=== PATIENT | female | born 1990 | race Caucasian/White ===

== ENCOUNTER 2018-05-01 00:50 | Inpatient (IN) ==
[2018-05-02] MEDS ORDERED: Gentamicin Consult Pharmacy 1 EACH OTHER SCH (00:01)
[2018-05-02] MEDS ORDERED: Sodium Chlor 0.9% Inj 500 ML IV.SIG SCH (00:01)
[2018-05-02] MEDS ORDERED: Metoprolol Tartrate 25 MG Tablet PO SCH (00:01)
[2018-05-02] MEDS ORDERED: Chlorhexidine Gluconate 2% 1 Pack (2 Cloths) TOPICAL SCH (00:01)
[2018-05-02] MEDS ORDERED: HYDROmorphone PF Inj 2 MG/ML Vial ONE (00:21)
[2018-05-02] MEDS ORDERED: Pantoprazole Inj 40 MG Vial ONE (01:17)
[2018-05-02] MEDS: Pantoprazole Inj 40 MG Vial IV.PUSH SCH (01:25)
[2018-05-02] MEDS: HYDROmorphone PF Inj 2 MG/ML Vial IV.PUSH PRN ×5 (04:17→23:34)
[2018-05-02] MEDS: Gentamicin Inj 80 MG in Sodium Chlor 0.9% Inj 100 ML IV.SIG SCH ×3 (04:19→20:40)
[2018-05-02] MEDS: Senna/Docusate Sodium 8.6/50 MG Tablet PO SCH ×2 (08:11→20:40)
[2018-05-02 08:15] LABS: Baso % (Auto) 0.1 % (0.0-2.0); Eos % (Auto) 0.1 % (0.0-4.0); Hematocrit 30.7 % (35.0-46.0); Hemoglobin 10.4 gm/dL (11.6-15.3); Lymph # (Auto) 1.5 th/mm3 (1.0-4.8); Lymph % (Auto) 15.4 % (9.0-44.0); Mean Corpuscular HGB Conc 33.7 % (32.0-36.0); Mean Corpuscular Hemoglobin 28.9 pg (27.0-34.0); Mean Corpuscular Volume 85.7 fL (80.0-100.0); Mean Platelet Volume 8.4 fL (7.0-11.0); Mono # (Auto) 0.9 th/mm3 (0.0-0.9); Mono % (Auto) 9.4 % (0.0-8.0); Neut # (Auto) 7.5 th/mm3 (1.8-7.7); Platelet Count 176 th/mm3 (150-450); Red Blood Count 3.59 mil/mm3 (4.00-5.30); Red Cell Distribution Width 12.9 % (11.6-17.2); White Blood Count 9.9 th/mm3 (4.0-11.0)
[2018-05-02] MEDS: Sod Chloride 0.9% Inj 1,000 ML IV.SIG SCH (08:27)
[2018-05-02 08:44] LABS: Albumin 2.8 g/dL (3.4-5.0); Anion Gap 9 meq/L (5-15); Aspartate Aminotransferase 25 U/L (15-37); Blood Urea Nitrogen 6 mg/dL (7-18); Calcium 7.7 mg/dL (8.5-10.1); Carbon Dioxide 26.3 meq/L (21.0-32.0); Chloride 105 meq/L (98-107); Glomerular Filtration Rate Greater Than 89 mL/min (>89); Glucose,Random 86 mg/dL (74-106); Potassium 3.5 meq/L (3.5-5.1); Sodium 140 meq/L (136-145)
[2018-05-02 08:48] LABS: Alanine Aminotransferase 19 U/L (10-53); Alkaline Phosphatase 85 U/L (45-117); Total Protein 6.1 g/dL (6.4-8.2)
--- NOTE | 2018-05-02 10:11 | P.PNOP ---
Subjective Interval history: Patient resting comfortably this morning. Reports left arm pain otherwise doing well Physical Exam Vital signs: Vital Signs 05/02/18 04:00 05/02/18 06:43 05/02/18 08:00 Temperature 97.8 F 98.5 F Pulse Rate 92 H 105 H Respiratory Rate 18 18 18 Blood Pressure 109/58 L 107/63 Pulse Oximetry 94 L Intake & Output 05/01/18 05/02/18 05/02/18 18:59 06:59 18:59 Intake Total 580 / 580 Output Total 2250 / 2250 Balance -1670 / -1670 Weight 100 kg 100 kg Intake: IV 100 / 100 Ancef Inj 1,000 MG In NS Inj 100 / 100 100 ML @ 200 mls/hr IV.SIG Q8H ALLEY Rx#:[id number] Oral 480 / 480 Output: Urine 2250 / 2250 Other: # Bowel Movements 0 Narrative: Awake, alert, no acute distress Left upper extremity: Splint and sling in place. VAC with good seal. Patient is able to move fingers and demonstrates she is able to perform a thumbs up. Sensation appears grossly intact distally. Radial pulses palpable. Assessment and Plan - Assessment and Plan 27-year-old female, postop day 1 status post irrigation and debridement of left elbow/arm and application of wound VAC 1. Nonweightbearing left upper extremity in splint. Patient will require secondary surgery by my partner, Dr. King for repeat irrigation and debridement and fixation of her distal humerus fracture. 2. Wound VAC to remain in place until second surgery 3. Continue antibiotics for open fracture
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
[2018-05-02] MEDS ORDERED: Enoxaparin Inj 40 MG/0.4 ML Syringe SQ SCH (17:45)
[2018-05-02] MEDS ORDERED: Pharmacy Ordered Lab Info OTHER ONE ×2 (19:45→21:00)
[2018-05-03] MEDS: Pantoprazole Inj 40 MG Vial IV.PUSH SCH (01:31)
[2018-05-03] MEDS: Sod Chloride 0.9% Inj 1,000 ML IV.SIG SCH ×3 (02:19→06:42)
[2018-05-03] MEDS: Gentamicin Inj 80 MG in Sodium Chlor 0.9% Inj 100 ML IV.SIG SCH ×3 (04:55→20:36)
[2018-05-03] MEDS: HYDROmorphone PF Inj 2 MG/ML Vial IV.PUSH PRN ×2 (04:55→22:14)
--- NOTE | 2018-05-03 07:08 | P.PNOP ---
Subjective Interval history: Resting comfortably in bed with no acute distress. Long-arm splint in place over left upper extremity. She has intact distal pulses and sensation. Physical Exam Vital signs: Vital Signs 05/02/18 08:00 05/02/18 12:00 05/02/18 15:11 Temperature 98.5 F 99.0 F Pulse Rate 105 H 117 H Respiratory Rate 18 Blood Pressure 107/63 110/53 L Pulse Oximetry 98 96 05/02/18 16:00 05/02/18 19:11 05/02/18 20:13 Temperature 98.7 F 98.3 F Pulse Rate 111 H 104 H Respiratory Rate 18 18 18 Blood Pressure 124/70 112/70 Pulse Oximetry 97 96 05/03/18 00:01 05/03/18 04:36 05/03/18 05:02 Temperature 98.5 F 97.8 F Pulse Rate 125 H 101 H Respiratory Rate 19 18 18 Blood Pressure 141/83 H 110/62 Pulse Oximetry 96 95 Intake & Output 05/02/18 05/03/18 05/03/18 18:59 06:59 18:59 Intake Total 1682 / 1682 644 / 644 Output Total 200 / 200 Balance 1482 / 1482 644 / 644 Weight 100 kg Intake: IV 1202 / 1202 404 / 404 Gentamicin Inj 80 MG In NS Inj 102 / 102 204 / 204 100 ML @ 204 mls/hr IV.SIG Q8H ALLEY Rx#:[id number] NS Inj 1,000 ML @ 100 mls/hr IV 1000 / 1000 .SIG .Q10H ALLEY Rx#:[id number] Ancef Inj 1,000 MG In NS Inj 100 / 100 200 / 200 100 ML @ 200 mls/hr IV.SIG Q8H ALLEY Rx#:[id number] Oral 480 / 480 240 / 240 Output: Urine 200 / 200 Other: Date of Last Bowel Movement 05/01/18 04/30/18 # Bowel Movements 0 Weight On Admission 100 kg - Constitutional no acute distress - Routine Abdominal Exam Present: soft. Absent: distended - Routine Extremities Exam Comments: Bilateral lower extremities: Full range of motion neurovascularly intact Right upper extremity: Full range of motion and neurovascularly intact Left upper extremity: Long-arm splint in place. She has intact sensation all her fingers with good capillary refills. She is able to extend her fingers and make a fist. Assessment and Plan - Assessment and Plan 27-year-old female, postop day 2 status post irrigation and debridement of left elbow/arm and application of wound VAC Nonweightbearing left upper extremity in splint. Wound VAC to remain in place Continue antibiotics for open fracture N.p.o. Sign consents Surgery this morning for irrigation debridement and wound VAC application
[2018-05-03] MEDS: Senna/Docusate Sodium 8.6/50 MG Tablet PO SCH (08:02)
[2018-05-03] MEDS: Enoxaparin Inj 40 MG/0.4 ML Syringe SQ SCH (11:38)
[2018-05-03] MEDS ORDERED: Naloxone Inj 0.4 MG/ML Vial IV.PUSH PRN (11:57)
[2018-05-03] MEDS ORDERED: Post-op Orders (for Pharmacy) OTHER STA (11:57)
[2018-05-03] MEDS ORDERED: Sodium Chlor 0.9% Inj 250 ML IV.SIG SCH (12:00)
[2018-05-03] MEDS ORDERED: Glycopyrrolate Inj 1 MG/5 ML Syringe IV.PUSH ONE (12:00)
[2018-05-03] MEDS ORDERED: Lidocaine PF 1% Inj 5 ML Syringe INFILTRATN ONE (12:00)
[2018-05-03] MEDS ORDERED: Neostigmine Inj 5 MG/5 ML Syringe IV.PUSH ONE (12:00)
[2018-05-03] MEDS ORDERED: Gentamicin/NS 80 mg Premix 100 ML IV.SIG SCH (12:00)
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
[2018-05-03] MEDS ORDERED: *Meperidine Inj 25 MG/ML Vial PERIprocedural Use ONLY ONE (12:33)
[2018-05-03] MEDS ORDERED: fentaNYL Citrate Inj 100 MCG/2 ML Ampul ONE (12:39)
[2018-05-03] MEDS ORDERED: *morphine SULFATE 4 MG/ML PERIprocedure ONLY ONE ×2 (12:45→12:50)
[2018-05-03] MEDS ORDERED: HYDROmorphone PF Inj 2 MG/ML Vial ONE ×3 (12:58→13:29)
[2018-05-03] MEDS ORDERED: Pharmacy Ordered Lab Info OTHER ONE ×2 (13:00→21:00)
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
[2018-05-03] MEDS ORDERED: ceFAZolin Inj 2,000 MG in Sodium Chlor 0.9% Inj 80 ML IV.SIG SCH (16:00)
[2018-05-03] MEDS: ceFAZolin 2 GM Premix Inj 2 GM/100 ML BAG IV.SIG SCH (22:35)
[2018-05-04] MEDS: Pantoprazole Inj 40 MG Vial IV.PUSH SCH (02:00)
[2018-05-04] MEDS: ceFAZolin 2 GM Premix Inj 2 GM/100 ML BAG IV.SIG SCH ×3 (03:35→18:25)
[2018-05-04] MEDS: Gentamicin Inj 80 MG in Sodium Chlor 0.9% Inj 100 ML IV.SIG SCH ×3 (03:36→21:05)
[2018-05-04] MEDS: HYDROmorphone PF Inj 2 MG/ML Vial IV.PUSH PRN ×4 (05:05→21:07)
[2018-05-04 06:23] LABS: Baso % (Auto) 0.4 % (0.0-2.0); Eos % (Auto) 0.4 % (0.0-4.0); Hematocrit 27.3 % (35.0-46.0); Hemoglobin 9.3 gm/dL (11.6-15.3); Lymph # (Auto) 2.4 th/mm3 (1.0-4.8); Lymph % (Auto) 24.4 % (9.0-44.0); Mean Corpuscular Hemoglobin 28.7 pg (27.0-34.0); Mean Corpuscular Volume 84.5 fL (80.0-100.0); Mean Platelet Volume 8.1 fL (7.0-11.0); Mono # (Auto) 0.4 th/mm3 (0.0-0.9); Mono % (Auto) 4.2 % (0.0-8.0); Neut # (Auto) 6.8 th/mm3 (1.8-7.7); Neut % (Auto) 70.6 % (16.0-70.0); Platelet Count 201 th/mm3 (150-450); Red Blood Count 3.23 mil/mm3 (4.00-5.30); Red Cell Distribution Width 12.7 % (11.6-17.2); White Blood Count 9.7 th/mm3 (4.0-11.0)
[2018-05-04 06:42] LABS: Anion Gap 10 meq/L (5-15); Blood Urea Nitrogen 6 mg/dL (7-18); Calcium 8.1 mg/dL (8.5-10.1); Carbon Dioxide 27.2 meq/L (21.0-32.0); Chloride 101 meq/L (98-107); Glomerular Filtration Rate Greater Than 89 mL/min (>89); Glucose,Random 89 mg/dL (74-106); Potassium 3.6 meq/L (3.5-5.1); Sodium 138 meq/L (136-145)
--- NOTE | 2018-05-04 07:30 | P.DCO ---
- Diagnosis (1) Humerus fracture - Physical Therapy Order: Evaluate and treat, Improve ambulation, Strength and gait training - Home Health Nursing Order: Medical education, Signs/symptoms of disease process, Medication education-adverse effect, Nursing assessment with vital signs - Certification I have seen patient Germaine Acosta on 05/04/18. My clinical findings support the need for the requested home health care services because: Limited mobility due to disease progression, Deconditioned with increased weakness, Limited ability to care for self, High risk of falls, Infection with risk of complications I certify that my clinical findings support that this patient is homebound because: Unsteady gait/balance, Unsafe to leave home unassisted, Unable to use public transportation (1) Humerus fracture Qualifiers: Encounter type: initial encounter Fracture type: open Fracture morphology: unspecified fracture morphology Laterality: left
[2018-05-04 07:54] LABS: Lymphocytes 19 % (9-44); Monocytes 3 % (0-8)
[2018-05-04 07:55] LABS: Platelet Estimate Normal (Normal); Platelet Morphology Normal (Normal)
[2018-05-04] MEDS: Senna/Docusate Sodium 8.6/50 MG Tablet PO SCH ×3 (08:04→21:05)
[2018-05-04] MEDS: Enoxaparin Inj 40 MG/0.4 ML Syringe SQ SCH (08:44)
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
--- NOTE | 2018-05-04 15:56 | P.PNOP ---
Subjective Interval history: Resting comfortably with no new complaint Physical Exam Vital signs: Vital Signs 05/03/18 16:00 05/03/18 20:00 05/03/18 22:00 Temperature 97.2 F L 98.3 F Pulse Rate 104 H 96 H Respiratory Rate 16 Blood Pressure 111/68 101/63 Pulse Oximetry 96 94 L 96 05/04/18 00:00 05/04/18 03:37 05/04/18 08:00 Temperature 97.7 F 98.1 F 97.8 F Pulse Rate 69 99 H 87 Respiratory Rate 20 18 17 Blood Pressure 111/57 L 126/61 111/55 L Pulse Oximetry 94 L 96 96 05/04/18 12:00 05/04/18 15:21 Temperature 97.9 F Pulse Rate 91 H Respiratory Rate 18 16 Blood Pressure 107/55 L Pulse Oximetry 97 Intake & Output 05/03/18 05/04/18 05/04/18 18:59 06:59 18:59 Intake Total 1440 / 1440 784 / 784 Output Total 430 / 430 650 / 650 Balance 1010 / 1010 134 / 134 Intake: IV 100 / 100 304 / 304 Gentamicin Inj 80 MG In NS Inj 204 / 204 100 ML @ 204 mls/hr IV.SIG Q8H ALLEY Rx#:[id number] Ancef 2 GM Premix Inj 2 gm In 100 / 100 100 ml @ 200 mls/hr IV.SIG Q8H ALLEY Rx#:[id number] Ancef Inj 1,000 MG In NS Inj 100 / 100 100 ML @ 100 mls/hr IV.SIG ONCE ONE Rx#:[id number] Oral 840 / 840 480 / 480 Anesthesia Amount 500 / 500 Output: Urine 400 / 400 650 / 650 Estimated Blood Loss 30 / 30 Other: # Voids 4 Date of Last Bowel Movement 05/01/18 05/01/18 # Bowel Movements 0 - Routine Extremities Exam Comments: Left upper extremity: Sling disheveled. Sling reapplied and splint is in good repair with wound VAC intact. Distally she has intact sensation with full extension flexion of all fingers Results - Labs CBC & Chem 7: 05/04/18 05:47 05/04/18 05:47 Laboratory Results - last 24 hr 05/03/18 05/04/18 05/04/18 22:45 05:47 05:47 WBC 9.7 RBC 3.23 L Hgb 9.3 L Hct 27.3 L MCV 84.5 MCH 28.7 MCHC 34.0 RDW 12.7 Plt Count 201 MPV 8.1 Prelim Diff (Auto) Slide review pending Neut % (Auto) 70.6 H Lymph % (Auto) 24.4 [place] % (Auto) 4.2 Eos % (Auto) 0.4 Baso % (Auto) 0.4 Neut # (Auto) 6.8 Lymph # (Auto) 2.4 [place] # (Auto) 0.4 Eos # (Auto) 0.0 Baso # (Auto) 0.0 WBC Differential Manual diff final Seg Neuts % (Manual) 78 H Lymphocytes % (Manual) 19 Monocytes % (Manual) 3 Abs Neuts (Manual) 7.6 Differential Comment . Platelet Estimate Normal Platelet Morphology Normal Sodium 138 Potassium 3.6 Chloride 101 Carbon Dioxide 27.2 Anion Gap 10 BUN 6 L Creatinine 0.45 L Estimated GFR Greater than 89 Random Glucose 89 Calcium 8.1 L Gentamicin Peak 2.3 L Assessment and Plan - Assessment and Plan Irrigation debridement with wound closure and VAC application POD 1 Nonweightbearing left upper extremity in splint. Wound VAC to remain in place Continue antibiotics for open fracture We will take down wound VAC on or Thursday to evaluate skin condition. Surgical intervention will be performed when improvement with traumatic wound assessment is performed.
[2018-05-05] MEDS: Pantoprazole Inj 40 MG Vial IV.PUSH SCH (01:53)
[2018-05-05] MEDS: Gentamicin Inj 80 MG in Sodium Chlor 0.9% Inj 100 ML IV.SIG SCH ×2 (03:59→13:15)
[2018-05-05] MEDS: ceFAZolin 2 GM Premix Inj 2 GM/100 ML BAG IV.SIG SCH ×2 (04:00→12:44)
[2018-05-05] MEDS: HYDROmorphone PF Inj 2 MG/ML Vial IV.PUSH PRN ×3 (04:08→20:47)
[2018-05-05] MEDS ORDERED: Bisacodyl 10 MG Supp RECTAL ONE (08:15)
[2018-05-05] MEDS: Senna/Docusate Sodium 8.6/50 MG Tablet PO SCH ×2 (09:42→20:46)
[2018-05-05] MEDS: Enoxaparin Inj 40 MG/0.4 ML Syringe SQ SCH (09:43)
--- NOTE | 2018-05-05 10:19 | P.PNOP ---
Subjective Interval history: Patient comfortable. Pain controlled. Physical Exam Vital signs: Vital Signs 05/04/18 12:00 05/04/18 15:21 05/04/18 16:00 Temperature 97.9 F 98 F Pulse Rate 91 H 95 H Respiratory Rate 18 16 16 Blood Pressure 107/55 L 105/63 Pulse Oximetry 97 95 05/04/18 19:15 05/05/18 00:00 05/05/18 08:56 Temperature 98.7 F 99 F 98.6 F Pulse Rate 20 L 96 H 87 Respiratory Rate 20 18 16 Blood Pressure 117/66 122/70 122/65 Pulse Oximetry 97 95 95 Intake & Output 05/04/18 05/05/18 05/05/18 18:59 06:59 18:59 Intake Total 1702 / 1702 102 / 102 Output Total 6 / 6 0 / 0 Balance 1696 / 1696 102 / 102 Intake: IV 502 / 502 102 / 102 Ofirmev Inj 1,000 mg In 100 ml 200 / 200 @ 400 mls/hr IV.SIG Q6H ALLEY Rx# :[id number] Gentamicin Inj 80 MG In NS Inj 102 / 102 102 / 102 100 ML @ 204 mls/hr IV.SIG Q8H ALLEY Rx#:[id number] Ancef 2 GM Premix Inj 2 gm In 200 / 200 100 ml @ 200 mls/hr IV.SIG Q8H ALLEY Rx#:[id number] Oral 1200 / 1200 Output: Urine 6 / 6 Wound Drainage 0 / 0 0 / 0 Left Elbow 0 / 0 0 / 0 Other: Date of Last Bowel Movement 05/01/18 # Bowel Movements 0 Narrative: Right Elbow dressing and splint intact wound vac in place sling in place distally motor, neuro, sensory intact Results - Labs CBC & Chem 7: 05/04/18 05:47 05/04/18 05:47 Assessment and Plan - Assessment and Plan Irrigation debridement with wound closure and VAC application POD 2 Nonweightbearing left upper extremity in splint. Wound VAC to remain in place Continue antibiotics for open fracture We will take down wound VAC on or Thursday to evaluate skin condition. Surgical intervention will be performed when improvement with traumatic wound assessment is performed.
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
[2018-05-05] MEDS ORDERED: Pharmacy Ordered Lab Info OTHER ONE ×2 (11:30→13:00)
[2018-05-05] MEDS: ceFAZolin 2 GM Premix Inj 2 GM/50 ML PIGGYBACK IV.SIG SCH (18:26)
[2018-05-05] MEDS ORDERED: Melatonin 5 MG Tablet PO PRN (21:00)
[2018-05-05] MEDS: Gentamicin Inj 100 MG in Sodium Chlor 0.9% Inj 100 ML IV.SIG SCH (23:11)
[2018-05-06] MEDS: Pantoprazole Inj 40 MG Vial IV.PUSH SCH (02:04)
[2018-05-06] MEDS: ceFAZolin 2 GM Premix Inj 2 GM/50 ML PIGGYBACK IV.SIG SCH ×3 (02:04→18:15)
[2018-05-06] MEDS: HYDROmorphone PF Inj 2 MG/ML Vial IV.PUSH PRN ×5 (02:04→20:19)
[2018-05-06] MEDS: Gentamicin Inj 100 MG in Sodium Chlor 0.9% Inj 100 ML IV.SIG SCH ×3 (04:47→20:33)
--- NOTE | 2018-05-06 06:38 | P.PNOP ---
Subjective Interval history: POd 2 s/p I&D with wound closure and incisional vac placement left distal humerus fx doing well. pain controlled. no new complaints Physical Exam Vital signs: Vital Signs 05/05/18 08:56 05/05/18 12:00 05/05/18 16:00 Temperature 98.6 F 99.5 F 98.2 F Pulse Rate 87 104 H 91 H Respiratory Rate 16 16 16 Blood Pressure 122/65 107/63 114/72 Pulse Oximetry 95 98 98 05/05/18 20:00 05/06/18 00:00 Temperature 98.4 F 98.2 F Pulse Rate 89 84 Respiratory Rate 18 16 Blood Pressure 116/65 116/63 Pulse Oximetry 98 98 Intake & Output 05/05/18 05/05/18 05/06/18 06:59 18:59 06:59 Intake Total 304 / 304 50 / 50 102.5 / 102.5 Output Total 0 / 0 Balance 304 / 304 50 / 50 102.5 / 102.5 Intake: IV 304 / 304 50 / 50 102.5 / 102.5 Gentamicin Inj 100 MG In NS Inj 204 / 204 102.5 / 102.5 100 ML @ 204 mls/hr IV.SIG Q8H ALLEY Rx#:[id number] Ancef 2 GM Premix Inj 2 gm In 100 / 100 100 ml @ 200 mls/hr IV.SIG Q8H ALLEY Rx#:[id number] Ancef 2 GM Premix Inj 2 gm In 50 / 50 50 ml @ 100 mls/hr IV.SIG Q8H ALLEY Rx#:[id number] Output: Wound Drainage 0 / 0 Left Elbow 0 / 0 Other: # Voids 5 Date of Last Bowel Movement 05/05/18 # Bowel Movements 1 Narrative: LUE: +splint. intact. +vac. good seal. nvi to median/ulnar nerve. Results - Labs CBC & Chem 7: 05/04/18 05:47 05/04/18 05:47 Laboratory Results - last 24 hr 05/05/18 17:30 Random Gentamicin 1.6 Assessment and Plan - Assessment and Plan Irrigation debridement with wound closure and VAC application POD 2 Nonweightbearing left upper extremity in splint. Wound VAC to remain in place Continue antibiotics for open fracture We will take down wound VAC on Thursday to evaluate skin condition. Surgical intervention will be performed when improvement with traumatic wound assessment is performed. NPO after MN plan for surgery tomorrow hold sonny
[2018-05-06] MEDS: Sod Chloride 0.9% Inj 1,000 ML IV.SIG SCH ×3 (07:48→16:27)
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
[2018-05-06] MEDS: Senna/Docusate Sodium 8.6/50 MG Tablet PO SCH (15:56)
[2018-05-06] MEDS ORDERED: Pharmacy Ordered Lab Info OTHER ONE ×2 (19:45→21:00)
[2018-05-07] MEDS: HYDROmorphone PF Inj 2 MG/ML Vial IV.PUSH PRN ×5 (01:52→21:30)
[2018-05-07] MEDS: Pantoprazole Inj 40 MG Vial IV.PUSH SCH (03:51)
[2018-05-07] MEDS: ceFAZolin 2 GM Premix Inj 2 GM/50 ML PIGGYBACK IV.SIG SCH ×2 (03:51→19:17)
[2018-05-07] MEDS: Gentamicin Inj 100 MG in Sodium Chlor 0.9% Inj 100 ML IV.SIG SCH (05:11)
--- NOTE | 2018-05-07 07:16 | P.PNOP ---
Subjective Interval history: Resting comfortably with no new complaints Physical Exam Vital signs: Vital Signs 05/06/18 08:00 05/06/18 11:40 05/06/18 12:00 Temperature 97.3 F L 98.2 F Pulse Rate 112 H 100 H Respiratory Rate 18 18 Blood Pressure 116/72 112/60 Pulse Oximetry 97 99 98 05/06/18 16:00 05/06/18 20:00 05/07/18 00:00 Temperature 98.3 F 97.4 F L 98.3 F Pulse Rate 100 H 105 H 101 H Respiratory Rate 18 18 18 Blood Pressure 115/61 138/65 113/60 Pulse Oximetry 100 99 99 05/07/18 04:00 Temperature 98.0 F Pulse Rate 97 H Respiratory Rate 18 Blood Pressure 117/59 L Pulse Oximetry 98 Intake & Output 05/06/18 05/07/18 05/07/18 18:59 06:59 18:59 Intake Total 1106 / 1106 102.5 / 102.5 Output Total 0 / 0 Balance 1106 / 1106 102.5 / 102.5 Weight 100 kg Intake: IV 706 / 706 102.5 / 102.5 Gentamicin Inj 100 MG In NS Inj 204 / 204 102.5 / 102.5 100 ML @ 204 mls/hr IV.SIG Q8H ALLEY Rx#:[id number] Ancef 2 GM Premix Inj 2 gm In 100 / 100 50 ml @ 100 mls/hr IV.SIG Q8H ALLEY Rx#:[id number] Oral 400 / 400 Output: Wound Drainage 0 / 0 Left Elbow 0 / 0 Other: # Voids 8 Date of Last Bowel Movement 05/05/18 # Bowel Movements 1 Narrative: GENERAL: This is a 27-year-old female lying in bed. No distress noted. SKIN: Warm and dry. HEAD: Atraumatic. Normocephalic. EYES: LEFT eye ecchymosis. ENT: No nasal bleeding or discharge. Mucous membranes pink and moist. NECK: Trachea midline. No JVD. CARDIOVASCULAR: Regular rate and rhythm. RESPIRATORY: No accessory muscle use. Lungs are clear to auscultation. Breath sounds equal bilaterally. No distress or dyspnea. GASTROINTESTINAL: BS + x 4 quads. Abdomen soft, non-tender, nondistended. MUSCULOSKELETAL: Extremities without cyanosis, or edema. Left upper extremity with splint in place and wrapped in Varun bandage. Wound VAC noted with good seal. + peripheral pulses x 4 extremities. Warm with good capillary refill and sensation. Active extension flexion of all fingers. NEUROLOGICAL: Awake and alert. Normal speech and pattern. Results - Labs CBC & Chem 7: 05/04/18 05:47 18 05:47 Assessment and Plan - Assessment and Plan Irrigation debridement with wound closure and VAC application left elbow POD 3 Nonweightbearing left upper extremity in splint. Wound VAC to remain in place Continue antibiotics for open fracture NPO Surgery today for irrigation debridement and possible ORIF hold lovenox
[2018-05-07] MEDS ORDERED: Chlorhexidine Gluconate 2% 1 Pack (2 Cloths) TOPICAL SCH (09:15)
[2018-05-07] MEDS ORDERED: Metoprolol Tartrate 25 MG Tablet PO SCH (09:15)
[2018-05-07] MEDS ORDERED: Sodium Chlor 0.9% Inj 500 ML IV.SIG SCH (10:00)
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
[2018-05-07] MEDS ORDERED: Promethazine 25 MG Supp RECTAL PRN (11:42)
--- NOTE | 2018-05-07 11:49 | P.OP ---
Date of procedure: 05/07/18 Procedure: Irrigation and debridement of open distal humerus fracture Open left distal humerus fracture Implants: Synthes distal humerus plate, Arthrex bioabsorbable pin Anesthesia: GETA Surgeon: Tony Feliz MD Can Piler: TARI Rodriguez PA-C The surgical procedure was assisted by my physician farm assistant. My P.A. presence was necessary throughout this case for the manipulation and positioning of the surgical extremity. My P.A. was assisting me throughout the duration of this procedure. The skill set of a physician farm assistant was medically necessary to complete this procedure. During the surgical case the ophthalmic surgical assistant was working at the back table and the physician farm assistant was directly assisting me. Operation and Findings: Patient was seen and evaluated preoperatively. After detailed discussion of risk and benefits of procedure patient wishes to proceed with surgery. Risks of surgery include bleeding, infection, nonunion, malunion, painful hardware, loss of motion of shoulder and elbow, weakness and numbness of arm, ulnar nerve injury as well as medical competitions including blood clots stroke and . Patient was brought to operating room and placed on the OR table. GETA was administered by anesthesiologist. Patient was positioned in lateral decubitus position. Extremities were well-padded. Axillary roll was placed. Operative arm and shoulder were prepped with alcohol followed by Hibiclens and draped usual sterile fashion. Timeout procedure was performed. IV antibiotics were given prior to incision. A standard posterior approach was utilized. Subcutaneous tissues was dissected with Bovie. The lateral border of the triceps was elevated off of the distal humerus. Fracture site was visualized. Next, the ulnar nerve was identified and protected throughout the procedure. The nerve was intact. The fracture was identified along the medial distal humerus. At this point attention was turned towards irrigation and debridement of open fracture. An excisional debridement was performed. Soft tissue was removed from the fracture site. Fracture site was cleaned with curettes. After thorough debridement of the fracture site, the wound was thoroughly irrigated with 3 L of sterile saline. Next attention was turned towards open reduction internal fixation of the fracture. At this point the fracture was reduced using fracture tenaculums. Multiplanar fluoroscopy confirmed excellent of fracture. Synthes distal humerus plate was selected. A Synthes lateral plate was placed along the posterior lateral humerus. Plate was provisionally held to bone with K wires. 3.5 cortical screws were used to compress plate to bone. Additional 2.7 locking screws were placed distally. K wires were removed. The fracture was very distal. Medially there was not enough distal fragment to capture with the plate. A 2.0 mm Arthrex bio absorbable pin was placed from the medial epicondyle into the distal segment. Final fluoroscopy revealed excellent alignment of fracture with well-placed hardware. Incision was thoroughly irrigated. Fascia was closed with #1 Vicryl, subcutaneous tissues closed with 3 -0 Vicryl, and skin was closed with roegr. Sterile dressings were applied. Needle and sponge counts were correct. Patient was placed into a sling, and then transferred to recovery room in stable condition
[2018-05-07] MEDS ORDERED: Sodium Chlor 0.9% Inj 250 ML IV.SIG SCH (12:00)
[2018-05-07] MEDS ORDERED: Glycopyrrolate Inj 1 MG/5 ML Syringe IV.PUSH ONE (12:00)
[2018-05-07] MEDS ORDERED: Phenylephrine/NS 1000 MCG/10ML Syringe IV.PUSH ONE (12:00)
[2018-05-07] MEDS ORDERED: Neostigmine Inj 5 MG/5 ML Syringe IV.PUSH ONE (12:00)
[2018-05-07] MEDS ORDERED: Lidocaine PF 1% Inj 5 ML Syringe INFILTRATN ONE (12:00)
[2018-05-07] MEDS ORDERED: Post-op Orders (for Pharmacy) OTHER STA (12:00)
[2018-05-07] MEDS ORDERED: *Meperidine Inj 25 MG/ML Vial PERIprocedural Use ONLY ONE (12:18)
[2018-05-07] MEDS ORDERED: fentaNYL Citrate Inj 100 MCG/2 ML Ampul ONE ×2 (12:19→12:20)
[2018-05-07] MEDS ORDERED: Morphine Inj 4 MG/ML Vial ONE (12:20)
[2018-05-07] MEDS ORDERED: *morphine SULFATE 10 MG/ML PERIprocedure ONLY ONE ×2 (12:27→12:43)
--- NOTE | 2018-05-07 12:29 | XR ---
EXAM DATE: 05/07/2018 12:18 PM EDT AGE/SEX: 27 years / Female INDICATIONS: ORIF left elbow in OR. CLINICAL DATA: This is the patient's subsequent encounter. Patient reports that signs and symptoms h ave been present for 2 weeks and indicates a pain score of Nonresponsive. MEDICAL/SURGICAL HISTORY: Non-responsive. Non-responsive. COMPARISON: [facility] [place] HUMERUS [place] (1 VW), 05/01/2018. . FINDINGS: Near-anatomic alignment at previous fracture with plate and screw fixation. No complications identifi ed. CONCLUSION: Near-anatomic alignment status post and screw fixation of distal humerus fracture. Electronically signed by: Faraz Gardner MD 05/07/2018 12:28 PM EDT
--- NOTE | 2018-05-07 12:33 | P.PNOP ---
Subjective Interval history: POD 0 s/p ORIF open left distal humerus fx stable in pacu Physical Exam Vital signs: Vital Signs 05/06/18 16:00 05/06/18 20:00 05/07/18 00:00 Temperature 98.3 F 97.4 F L 98.3 F Pulse Rate 100 H 105 H 101 H Respiratory Rate 18 18 18 Blood Pressure 115/61 138/65 113/60 Pulse Oximetry 100 99 99 05/07/18 00:30 05/07/18 04:00 Temperature 98.0 F Pulse Rate 97 H Respiratory Rate 16 18 Blood Pressure 117/59 L Pulse Oximetry 98 Intake & Output 05/06/18 05/07/18 05/07/18 18:59 06:59 18:59 Intake Total 1106 / 1106 102.5 / 102.5 Output Total 0 / 0 Balance 1106 / 1106 102.5 / 102.5 Weight 100 kg Intake: IV 706 / 706 102.5 / 102.5 Gentamicin Inj 100 MG In NS Inj 204 / 204 102.5 / 102.5 100 ML @ 204 mls/hr IV.SIG Q8H [facility] Rx#:[id number] Ancef 2 GM Premix Inj 2 gm In 100 / 100 50 ml @ 100 mls/hr IV.SIG Q8H [facility] Rx#:[id number] Oral 400 / 400 Output: Wound Drainage 0 / 0 Left Elbow 0 / 0 Other: # Voids 8 Date of Last Bowel Movement 05/05/18 # Bowel Movements 1 Narrative: LUE: +long arm splint. present and in good repair Results - Labs CBC & Chem 7: 05/04/18 05:47 05/04/18 05:47 - Imaging Impressions Elbow X-Ray 05/07/18 00:00 CONCLUSION: Near-anatomic alignment status post and screw fixation of distal humerus fracture. Assessment and Plan - Assessment and Plan POD 0 s/p I&D with ORIF of left distal humerus fx -patient will require 48hr of IV Abx. once completed, can go home -plan for DC home on Thursday -NWB -maintain splint at all times -Rx on chart -f/u with Fernando or ALEJANDRA in 2 weeks
[2018-05-07] MEDS: Senna/Docusate Sodium 8.6/50 MG Tablet PO SCH (23:57)
[2018-05-08] MEDS: HYDROmorphone PF Inj 2 MG/ML Vial IV.PUSH PRN ×3 (01:43→10:54)
[2018-05-08] MEDS: ceFAZolin 2 GM Premix Inj 2 GM/50 ML PIGGYBACK IV.SIG SCH ×4 (02:58→17:41)
[2018-05-08] MEDS: Gentamicin/NS 80 mg Premix 100 ML IV.SIG SCH ×4 (02:59→18:58)
[2018-05-08 07:09] LABS: Baso % (Auto) 0.2 % (0.0-2.0); Eos # (Auto) 0.1 th/mm3 (0.0-0.4); Eos % (Auto) 0.6 % (0.0-4.0); Hematocrit 32.5 % (35.0-46.0); Hemoglobin 10.8 gm/dL (11.6-15.3); Lymph # (Auto) 1.9 th/mm3 (1.0-4.8); Lymph % (Auto) 12.4 % (9.0-44.0); Mean Corpuscular HGB Conc 33.3 % (32.0-36.0); Mean Corpuscular Hemoglobin 28.2 pg (27.0-34.0); Mean Corpuscular Volume 84.6 fL (80.0-100.0); Mean Platelet Volume 7.7 fL (7.0-11.0); Mono # (Auto) 0.9 th/mm3 (0.0-0.9); Mono % (Auto) 6.2 % (0.0-8.0); Neut # (Auto) 12.3 th/mm3 (1.8-7.7); Neut % (Auto) 80.6 % (16.0-70.0); Platelet Count 362 th/mm3 (150-450); Red Blood Count 3.84 mil/mm3 (4.00-5.30); Red Cell Distribution Width 13.7 % (11.6-17.2); White Blood Count 15.3 th/mm3 (4.0-11.0)
[2018-05-08 07:28] LABS: Anion Gap 11 meq/L (5-15); Blood Urea Nitrogen 12 mg/dL (7-18); Calcium 9.2 mg/dL (8.5-10.1); Carbon Dioxide 25.2 meq/L (21.0-32.0); Chloride 99 meq/L (98-107); Glomerular Filtration Rate Greater Than 89 mL/min (>89); Glucose,Random 91 mg/dL (74-106); Potassium 4.1 meq/L (3.5-5.1)
[2018-05-08 07:30] LABS: Sodium 135 meq/L (136-145)
--- NOTE | 2018-05-08 07:47 | P.PNOP ---
Subjective Interval history: POD 1 s/p I&D with ORIF of left distal humerus fx Patient is awake and alert with family member at bedside. She states her pain is moderately, controlled and she wishes to go home. Patient understands she needs to stay until tomorrow. No other complaints Physical Exam Vital signs: Vital Signs 05/07/18 12:15 05/07/18 12:30 05/07/18 12:45 Temperature 98.4 F Pulse Rate 106 H 101 H Respiratory Rate 14 15 15 Blood Pressure 128/89 131/94 H 136/95 H Pulse Oximetry 100 99 05/07/18 13:00 05/07/18 13:10 05/07/18 13:15 Temperature 97.8 F Pulse Rate 97 H 98 H Respiratory Rate 16 16 Blood Pressure 135/88 134/89 Pulse Oximetry 98 98 99 05/07/18 16:07 05/07/18 19:15 05/07/18 20:00 Temperature 97.3 F L 98.6 F Pulse Rate 109 H 106 H Respiratory Rate 20 18 16 Blood Pressure 118/65 123/74 Pulse Oximetry 96 97 05/08/18 00:00 05/08/18 04:00 Temperature 98.6 F 98.2 F Pulse Rate 101 H 106 H Respiratory Rate 16 16 Blood Pressure 104/63 112/60 Pulse Oximetry 98 99 Intake & Output 05/07/18 05/08/18 05/08/18 18:59 06:59 18:59 Intake Total 800 / 800 Output Total 100 / 100 Balance -100 / -100 800 / 800 Weight 78.3 kg Intake: Oral 800 / 800 Output: Estimated Blood Loss 100 / 100 Other: # Voids 5 Date of Last Bowel Movement 05/05/18 Narrative: GENERAL: This is a 27-year-old female lying in bed. No distress noted. SKIN: Warm and dry. HEAD: Atraumatic. Normocephalic. EYES: LEFT eye ecchymosis. ENT: No nasal bleeding or discharge. Mucous membranes pink and moist. NECK: Trachea midline. No JVD. CARDIOVASCULAR: Regular rate and rhythm. RESPIRATORY: No accessory muscle use. Lungs are clear to auscultation. Breath sounds equal bilaterally. No distress or dyspnea. GASTROINTESTINAL: BS + x 4 quads. Abdomen soft, non-tender, nondistended. MUSCULOSKELETAL: Extremities without cyanosis, or edema. Left upper extremity with splint in place and wrapped in Varun bandage. + peripheral pulses x 4 extremities. Warm with good capillary refill and sensation. MAEW. NEUROLOGICAL: Awake and alert. Normal speech and pattern. Results - Labs CBC & Chem 7: 05/04/18 05:47 05/08/18 05:50 Laboratory Results - last 24 hr 05/08/18 05:50 Sodium 135 L Potassium 4.1 Chloride 99 Carbon Dioxide 25.2 Anion Gap 11 BUN 12 Creatinine 0.70 Estimated GFR Greater than 89 Random Glucose 91 Calcium 9.2 - Imaging Impressions Elbow X-Ray 05/07/18 00:00 CONCLUSION: Near-anatomic alignment status post and screw fixation of distal humerus fracture. Assessment and Plan - Assessment and Plan POD 1 s/p I&D with ORIF of left distal humerus fx -patient will require 48hr of IV Abx. once completed, can go home -plan for DC home tomorrow -NWB -maintain splint at all times -Rx on chart per Dr. King's team. -f/u with Fernando or ALEJANDRA in 2 weeks
[2018-05-08] MEDS: Enoxaparin Inj 40 MG/0.4 ML Syringe SQ SCH (08:56)
[2018-05-08] MEDS: Senna/Docusate Sodium 8.6/50 MG Tablet PO SCH ×2 (08:57→20:26)
[2018-05-08 09:14] LABS: Lymphocytes 9 % (9-44); Monocytes 8 % (0-8); Myelocytes 1 % (0-0); Platelet Estimate Normal (Normal); Platelet Morphology Normal (Normal)
[2018-05-08] MEDS: Ketorolac Inj 30 MG/ML (IVP) Vial IV.PUSH SCH ×3 (10:08→20:26)
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
[2018-05-09] MEDS: HYDROmorphone PF Inj 2 MG/ML Vial IV.PUSH PRN ×2 (01:22→09:10)
[2018-05-09] MEDS: ceFAZolin 2 GM Premix Inj 2 GM/50 ML PIGGYBACK IV.SIG SCH ×2 (01:46→09:13)
[2018-05-09] MEDS: Ketorolac Inj 30 MG/ML (IVP) Vial IV.PUSH SCH ×3 (03:29→15:08)
[2018-05-09] MEDS: Gentamicin/NS 80 mg Premix 100 ML IV.SIG SCH ×2 (03:30→09:55)
[2018-05-09] MEDS: Sod Chloride 0.9% Inj 1,000 ML IV.SIG SCH ×3 (07:58→11:58)
[2018-05-09] MEDS: Pantoprazole Inj 40 MG Vial IV.PUSH SCH (08:07)
[2018-05-09] MEDS: Senna/Docusate Sodium 8.6/50 MG Tablet PO SCH ×2 (08:08→09:14)
[2018-05-09] MEDS: Enoxaparin Inj 40 MG/0.4 ML Syringe SQ SCH (09:13)
[2018-05-09] MEDS: Gentamicin Inj 100 MG in Sodium Chlor 0.9% Inj 100 ML IV.SIG SCH (11:33)
--- NOTE | 2018-05-09 14:08 | P.PNOP ---
Subjective Interval history: Patient resting comfortably. She states she was ready for discharged home today. Pain controlled. Physical Exam Vital signs: Vital Signs 05/08/18 20:20 05/09/18 00:40 05/09/18 04:00 Temperature 99.5 F 98.4 F 98.4 F Pulse Rate 109 H 110 H 84 Respiratory Rate 17 18 18 Blood Pressure 112/66 121/70 108/60 Pulse Oximetry 100 98 99 05/09/18 06:00 Temperature Pulse Rate Respiratory Rate 17 Blood Pressure Pulse Oximetry Intake & Output 05/08/18 05/09/18 05/09/18 18:59 06:59 18:59 Intake Total 200 / 200 250 / 250 1252.5 / 1252.5 Balance 200 / 200 250 / 250 1252.5 / 1252.5 Weight 78.3 kg Intake: IV 200 / 200 250 / 250 1252.5 / 1252.5 Gentamicin/NS 80 mg Premix 100 100 / 100 200 / 200 100 / 100 ML @ 200 mls/hr IV.SIG Q8H [facility] Rx#:[id number] NS Inj 1,000 ML @ 100 mls/hr IV 1000 / 1000 .SIG .Q10H [facility] Rx#:[id number] Ancef 2 GM Premix Inj 2 gm In 100 / 100 50 / 50 50 / 50 50 ml @ 100 mls/hr IV.SIG Q8H [facility] Rx#:[id number] Other: # Voids 2 Narrative: GENERAL: This is a 27-year-old female lying in bed. SKIN: Warm and dry. HEAD: Normocephalic. LEFT forehead ecchymosis noted. EYES: LEFT eye ecchymosis. ENT: No nasal bleeding or discharge. Mucous membranes pink and moist. NECK: Trachea midline. No JVD. CARDIOVASCULAR: Regular rate and rhythm. RESPIRATORY: No accessory muscle use. Lungs are clear to auscultation. Breath sounds equal bilaterally. No distress or dyspnea. GASTROINTESTINAL: BS + x 4 quads. Abdomen soft, non-tender, nondistended. MUSCULOSKELETAL: Extremities without cyanosis, or edema. LUE soft splint in place. + perfused, MAEW. NEUROLOGICAL: Awake and alert. Normal speech. Results - Labs CBC & Chem 7: 05/08/18 05:50 05/08/18 05:50 Assessment and Plan - Assessment and Plan POD 2 s/p I&D with ORIF of left distal humerus fx -NWB -maintain splint at all times -Rx on chart per Dr. King's team. - clear for d/c to home from orthopedic standpoint. -f/u with Fernando or ALEJANDRA in 2 weeks
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
== END 2018-05-09 16:15 | disposition home health service (06) ==
LOC: EDBD → N06 01:19
PROVIDERS: ADMIT Surgery; ATTEND Surgery